=== PATIENT | female | born 1940 ===

== ENCOUNTER 2024-02-25 10:36 | Inpatient (IN) | payer MEDICARE, OTHER ==
[~2024-02-25 10:36] MED LIST: HYDROmorphone 0.5 MG/0.5 ML SYRINGE IVP PRN; MIDAZOLAM 2 MG/2 ML VIAL IV PRN
--- NOTE | 2024-02-25 11:13 | XR ---
EXAMINATION TYPE: XR KUB DATE OF EXAM: 02/25/2024 HISTORY: Pain Comparison: None.Single KUB is submitted for interpretation. Findings: Right renal calculi: Mid pole right renal calculus measures 1.4 cm with a lower pole calculus measuri ng approximately 1.1 cm. Right ureteral calculi: None Visualized. Left renal calculi: Staghorn calculus measures approximately 4.4 x 2.6 cm. Additional lower pole magdalena culus measures 1.2 cm with an additional 6 mm calculus. Left ureteral calculi: None Visualized. Pelvic calcifications: phleboliths noted to be in place. Bowel gas pattern is unremarkable. No free air. No mass effects. IMPRESSION: 1. As above
[2024-02-25] MEDS: LACTATED RINGERS 1,000 ML IV ONE ×2 (11:46→14:35)
[2024-02-25 11:47] LABS: Glucose,Whole Blood 88 mg/dL (70-110)
[2024-02-25] MEDS: ONDANSETRON 4 MG/2 ML VIAL IVP ONE ×2 (11:52→16:00)
[2024-02-25] MEDS: DEXAMETHASONE SOD PHOSPHATE 4 MG/ML 1 ML VIAL IVP ONE (11:52)
[2024-02-25] MEDS: GENTAMICIN 80 MG in SODIUM CHLORIDE 0.9% 100 ML IVPB PRN (12:55)
[2024-02-25] MEDS ORDERED: PHENYLEPHRINE-0.9% NACL SYG 1,000 MCG/10 ML SYRINGE ONE (13:02)
[2024-02-25] MEDS ORDERED: ROCURONIUM 10 MG/ML (5 ML VIAL) IV ONE (13:02)
[2024-02-25] MEDS ORDERED: PROPOFOL 10 MG/ML 20 ML VIAL IV ONE (13:02)
[2024-02-25] MEDS ORDERED: NEOSTIGMINE 1 MG/ML 10 ML VIAL ONE (13:02)
[2024-02-25] MEDS ORDERED: fentaNYL (PF) 50 MCG/ML 2 ML AMP ONE (13:02)
[2024-02-25] MEDS ORDERED: GLYCOPYRROLATE 0.2 MG/ML 2 ML VIAL ONE (13:02)
[2024-02-25] MEDS ORDERED: LIDOCAINE 1% INJ 10MG/ML (20 ML MDV) ONE (13:02)
[2024-02-25] MEDS: IOPAMIDOL-370 100ML BTL MISCELLANE ONE (13:43)
[2024-02-25] MEDS ORDERED: FLUTICASONE 50MCG/SPRAY NASAL 16GM NASAL PRN (14:54)
[2024-02-25] MEDS ORDERED: MAG HYDROX/AL HYDROX/SIMETH 30 ML CUP PO PRN (14:55)
[2024-02-25 14:56] LABS: Glucose,Whole Blood 104 mg/dL (70-110)
--- NOTE | 2024-02-25 15:00 | FL ---
EXAMINATION TYPE: FL Perc Nephrostomy New Access DATE OF EXAM: 02/25/2024 COMPARISON: NONE HISTORY: PERCUTANEOUS LEFT STAGHORN CALCULUS TECHNIQUE: Fluoroscopy. FINDINGS: LEFT SIDE PERC NEPHRO WITH DR. GRANT FL TIME 4.49 MINS DAP 30.881 IMPRESSION: As Above.
--- NOTE | 2024-02-25 15:06 | P.OP ---
Date of Procedure: 02/25/24 Preoperative Diagnosis: Staghorn calculus left, infected Postoperative Diagnosis: same Procedure(s) Performed: cystoscopy, placement of occluding balloon catheter left, percutaneous nephrostomy (dr higginbotham), percutaneous nephrostolithotomy with ultrasound and laser lithotripsy, placement of 10 J nephrostomy Anesthesia: AIDA Surgeon: Chandrakant Higginbotham Estimated Blood Loss (ml): 100 Pathology: other (stone) Condition: stable Disposition: PACU Indications for Procedure: patient is 84. She has a staghorn calculus in the left kidney that is infected. She comes for percutaneous nephrostolithotomy left Description of Procedure: patient brought to the operating suite. Given a successful general endotracheal anesthesia. Placed in a frog position with a sterile prep and drape. Cystoscopy a Foroblique lens and 21-[place]izen [place] sheath identifies chronic cystitis on the bladder. The left ureteral orifice is intubated and a 5-[place] occluding balloon catheters passed up to the proximal ureter. The balloon is insufflated. It is secured to a 16-[place]izen [place] Aldana The patient's placed in a prone position with care to airways and extremities. left Percutaneous nephrostomy access is performed by me and will be dictated separately.I then dilate the tract to 30-[place]izen [place] and through the established access in the upper pole of the left kidney. I introduced the nephrostomy sheath into the collecting system and with the rigid nephroscope I remove clot. The stone is seen. With ultrasound I slowly fracture and disintegrate the stone. It is very soft consistent with a struvite stone. After I removed the bulk of the stone I looked throughout the collecting system with the flexible nephroscope. There is one stone in the lower pole calyx that required laser lithotripsy with the 272 laser probe break it up into tiny fragments. I used the 0 tip stone basket to remove some other fragments. I looked down the proximal ureter and see no remaining stone fragments. An intraoperative nephrostogram is performed and there are no remaining fragments. There is a stone in the parenchyma in the left lower pole that I cannot access endoscopically and this is confirmed with the intraoperative nephrostogram.a 10 J nephrostomy is placed the patient is awakened and returned recovery in good condition. The patient tolerated the procedure well. Blood loss was approximately 100 mL.
--- NOTE | 2024-02-25 15:12 | P.PCN ---
Date of Procedure: 02/25/24 Preoperative Diagnosis: left staghorn calculus Postoperative Diagnosis: same Procedure(s) Performed: radiographic percutaneous access to the left upper pole calyx Anesthesia: AIDA Surgeon: Chandrakant Gaffney Disposition: PACU Indications for Procedure: the patient is 84. She has an infected Staghorn calculus on the left. She comes for percutaneous access prior to percutaneous nephrostolithotomy on the left side Description of Procedure: the patient has been previously anesthetized. She is in a prone position. The left flank is exposed. I injected air through the previously placed occluding balloon catheter in the left proximal ureter. The collecting system was identified. The large staghorn calculus is noted. A left upper pole calyx is dilated. I then make a small sergey in the incision over the left upper pole calyx. I passed the 21-gauge Chiba needle into the left upper pole calyx. Through the Chiba needle a cope-Mandrell wire, 3-Frenchis passed into the upper pole calyx and then into the renal pelvis. I then removed the Chiba needle and over the wires passed a dilating catheter, 6-Erit[place]. I then removed the cope wireand pass an 035 [place] straight wire into the proximal ureter. I then removed the dilating catheter and passed a 5-[place] Kumpe catheter over the wire. This allows me to eventually directed my wire down into the proximal ureter. Fortunately I'm able to pass a comfy catheter over the wire. I then remove the with 35 [place] wire pass a Super Stiff wire through the Kumpe catheter. I then over the Super Stiff wire pass a 810 exchange catheters in the left proximal ureter. The 8 is removed and a second safety wires passed down the left ureter. Over the working wires and passed the dilating balloon and the tract was dilated to 30-Erit[place]an. Over the dilating balloon a 30-Eritrean sheath was passed into the collecting system.
[2024-02-25] MEDS: Pre Op ABX Message 1 EACH MISC MISCELLANE ONE (15:59)
[2024-02-25] MEDS: DEXAMETHASONE SOD PHOSPHATE 4 MG/ML 1 ML VIAL IV ONE (15:59)
[2024-02-25] MEDS: LACTATED RINGERS 1,000 ML IV SCH (16:00)
[2024-02-25] MEDS: SODIUM CHLORIDE 0.45% 1,000 ML IV SCH (16:01)
[2024-02-25] MEDS: MORPHINE SULFATE 2 MG/ML SYRINGE IVP STA (16:01)
[2024-02-25] MEDS: GABAPENTIN 100 MG CAP PO SCH (17:31)
[2024-02-25] MEDS: carvediloL 12.5 MG TAB PO SCH (17:31)
[2024-02-25 17:38] LABS: Glucose,Whole Blood 123 mg/dL (70-110)
[2024-02-25] MEDS: FLUTICASONE 110 MCG INHALER INHALATION SCH (19:27)
[2024-02-25 20:28] LABS: Glucose,Whole Blood 128 mg/dL (70-110)
[2024-02-25] MEDS: MORPHINE SULFATE 4 MG/ML SYRINGE IVP PRN (20:52)
[2024-02-25] MEDS: metFORMIN 500 MG TAB PO SCH (21:04)
[2024-02-25] MEDS: AZELASTINE 137MCG/SPRAY NASAL SCH (21:10)
[2024-02-26] MEDS: ACETAMINOPHEN TAB 325 MG TAB PO PRN (02:00)
[2024-02-26 07:44] LABS: Glucose,Whole Blood 97 mg/dL (70-110)
[2024-02-26] MEDS: LEVOFLOXACIN 500 MG TAB PO SCH (08:51)
[2024-02-26] MEDS: DAPAGLIFLOZIN PROPANEDIOL 5 MG TABLET PO SCH (08:51)
[2024-02-26] MEDS: FENOFIBRATE 160 MG TAB PO SCH (08:51)
[2024-02-26 12:21] LABS: Glucose,Whole Blood 95 mg/dL (70-110)
[2024-02-26 16:58] LABS: Glucose,Whole Blood 83 mg/dL (70-110)
[2024-02-26 20:41] LABS: Glucose,Whole Blood 87 mg/dL (70-110)
[2024-02-27 07:12] LABS: Glucose,Whole Blood 109 mg/dL (70-110)
[2024-02-27 11:49] LABS: Glucose,Whole Blood 115 mg/dL (70-110)
[2024-02-27] MEDS: FLUCONAZOLE 150 MG TAB PO STA (14:06)
[2024-02-27 17:14] LABS: Glucose,Whole Blood 140 mg/dL (70-110)
[2024-02-27 19:58] LABS: Glucose,Whole Blood 129 mg/dL (70-110)
[2024-02-28 07:06] LABS: Glucose,Whole Blood 99 mg/dL (70-110)
[2024-02-28] MEDS: FLUCONAZOLE 150 MG TAB PO SCH (08:21)
--- NOTE | 2024-02-28 10:40 | P.PN ---
Subjective Progress Note Date: 02/26/24 The patient is 24 hours status post left percutaneous nephrostolithotomy for an infected stone. As expected she had some fever last night despite culture specific antibiotics. She is feeling well. Her urine is clearing nicely. Objective - Vital Signs Vital signs: Vital Signs Temp 99.4 F 02/28/24 07:08 Pulse 98 02/28/24 07:08 Resp 17 02/28/24 07:08 BP 109/68 02/28/24 07:08 Pulse Ox 94 L 02/28/24 08:01 FiO2 Intake & Output 02/27/24 02/28/24 02/28/24 18:59 06:59 18:59 Intake Total 900 590 Output Total 875 1640 Balance 25 -1050 Intake: Intake, IV Titration 900 Amount Sodium Chloride 0.45% 1, 900 000 ml @ 75 mls/hr IV . [id number] [facility] Rx#:[id number] Oral 590 Output: Drainage 325 340 Left Back 325 340 Urine 550 1300 Other: Voiding Method Indwelling Catheter Indwelling Catheter # Bowel Movements 1 - Genitourinary Genitourinary Comment(s): Left nephrostomy tube with clearing urine - Labs Labs: Abnormal Lab Results - Last 24 Hours (Table) 02/27/24 02/27/24 02/27/24 Range/Units 11:48 17:13 19:56 POC Glucose (mg/dL) 115 H 140 H 129 H (70-110) mg/dL Assessment and Plan Assessment: Impression: Status post percutaneous nephrostolithotomy 2 large infected stone. Postoperative fever as expected secondary to fracturing of the stone. Recommendations: I will keep her in the hospital at least 4 another 24 hours for antibiotics and IV fluids. I will leave the Aldana in for now.
--- NOTE | 2024-02-28 10:42 | P.PN ---
Subjective Progress Note Date: 02/27/24 The patient underwent percutaneous nephrostolithotomy on 02/26/24 for an infected left staghorn calculus. She is recuperating nicely. Again as expected she had fever yesterday less than on 02/25. She is eating. Her urine is clearing. Objective - Vital Signs Vital signs: Vital Signs Temp 99.4 F 02/28/24 07:08 Pulse 98 02/28/24 07:08 Resp 17 02/28/24 07:08 BP 109/68 02/28/24 07:08 Pulse Ox 94 L 02/28/24 08:01 FiO2 Intake & Output 02/27/24 02/28/24 02/28/24 18:59 06:59 18:59 Intake Total 900 590 Output Total 875 1640 Balance 25 -1050 Intake: Intake, IV Titration 900 Amount Sodium Chloride 0.45% 1, 900 000 ml @ 75 mls/hr IV . [id number] [facility] Rx#:[id number] Oral 590 Output: Drainage 325 340 Left Back 325 340 Urine 550 1300 Other: Voiding Method Indwelling Catheter Indwelling Catheter # Bowel Movements 1 - Labs Labs: Abnormal Lab Results - Last 24 Hours (Table) 02/27/24 02/27/24 02/27/24 Range/Units 11:48 17:13 19:56 POC Glucose (mg/dL) 115 H 140 H 129 H (70-110) mg/dL Assessment and Plan Assessment: Impression: Status post percutaneous nephrostolithotomy left to infected Staghorn calculus. Postoperative fever as expected due to infected stone despite culture specific antibiotics Recommendations: Due to her age and health we'll observe her another 24 hours
[2024-02-28 12:00] LABS: Glucose,Whole Blood 111 mg/dL (70-110)
--- NOTE | 2024-02-28 13:15 | P.DS ---
Providers Date of admission: 02/28/24 10:03 Attending physician: Chandrakant Gaffney Primary care physician: Stated None Hospital Course: This is an 84-year-old female with history of left-sided staghorn calculi. Underwent a percutaneous nephrolithotomy on February 24. Please see op note dated February 24 for surgery details. Patient was admitted to the hospital postoperatively. She did have postoperative fever requiring IV antibiotics. Aldana catheter was removed on postop day #3. She was discharged home on postop day #3, at time of discharge she was tolerating a diet, ambulating, and pain was controlled Plan - Discharge Summary Discharge Rx Participant: Yes New Discharge Prescriptions: No Action carvediloL 12.5 mg PO BID Simvastatin 40 mg PO HS Gabapentin [Neurontin] 100 mg PO TID Fenofibrate Nanocrystallized [Fenofibrate] 145 mg PO QAM Azelastine HCl [Astepro] 1 spray NASAL BID Fluticasone Nasal [place] [Flonase Nasal [place]] 1 spray NASAL DAILY PRN PRN Reason: coughing levoFLOXacin 500 mg PO DAILY Fluticasone Propionate [Flovent Diskus] 1 inh INHALATION BID metFORMIN HCL 1,000 mg PO BID Valsartan 160 mg PO QAM Empagliflozin [Jardiance] 10 mg PO QAM Acetaminophen [Tylenol Arthritis] 2 tab PO BID Aspirin 81 mg PO DAILY Unk Multi Vitamin 1 tab PO DAILY Discharge Medication List Acetaminophen [Tylenol Arthritis] 2 tab PO BID 02/11/24 [History] Aspirin 81 mg PO DAILY 02/11/24 [History] Azelastine HCl [Astepro] 1 spray NASAL BID 02/11/24 [History] Empagliflozin [Jardiance] 10 mg PO QAM 02/11/24 [History] Fenofibrate Nanocrystallized [Fenofibrate] 145 mg PO QAM 02/11/24 [History] Fluticasone Nasal [place] [Flonase Nasal [place]] 1 spray NASAL DAILY PRN 02/11/24 [History] Fluticasone Propionate [Flovent Diskus] 1 inh INHALATION BID 02/11/24 [History] Gabapentin [Neurontin] 100 mg PO TID 02/11/24 [History] Simvastatin 40 mg PO HS 02/11/24 [History] Valsartan 160 mg PO QAM 02/11/24 [History] carvediloL 12.5 mg PO BID 02/11/24 [History] metFORMIN HCL 1,000 mg PO BID 02/11/24 [History] Unk Multi Vitamin 1 tab PO DAILY 02/24/24 [History] levoFLOXacin 500 mg PO DAILY 02/24/24 [History] Follow up Appointment(s)/Referral(s): Residential Home,Health [NON-STAFF] - 1 Week Activity/Diet/Wound Care/Special Instructions: Per Dr. Bartholomew, Nephrostomy tube will not require flushing.
[2024-02-28 17:23] LABS: Glucose,Whole Blood 105 mg/dL (70-110)
[2024-02-28 19:56] LABS: Glucose,Whole Blood 103 mg/dL (70-110)
[2024-02-29 07:01] LABS: Glucose,Whole Blood 97 mg/dL (70-110)
--- NOTE | 2024-02-29 09:18 | P.PN ---
Subjective Progress Note Date: 02/29/24 No acute overnight event, she is afebrile this morning. Awaiting placement into subacute rehab tentatively plan to discharge on March 02 Objective - Vital Signs Vital signs: Vital Signs Temp 98.4 F 02/29/24 07:01 Pulse 88 02/29/24 07:01 Resp 16 02/29/24 07:01 BP 115/71 02/29/24 07:01 Pulse Ox 95 02/29/24 07:01 FiO2 Intake & Output 02/28/24 02/29/24 02/29/24 18:59 06:59 18:59 Intake Total 1080 1260 Output Total 1000 200 Balance 80 1060 Intake: Intake, IV Titration 900 Amount Sodium Chloride 0.45% 1, 900 000 ml @ 75 mls/hr IV . [id number] [facility] Rx#:[id number] Oral 1080 360 Output: Drainage 300 200 Left Back 300 200 Urine 700 Other: Voiding Method Indwelling Catheter Indwelling Catheter # Voids 1 1 # Bowel Movements 1 1 - Constitutional General appearance: Present: no acute distress - Gastrointestinal General gastrointestinal: Present: soft. Absent: distended, tenderness - Psychiatric Psychiatric: Present: A&O x's 3 - Labs Labs: Abnormal Lab Results - Last 24 Hours (Table) 02/28/24 Range/Units 11:59 POC Glucose (mg/dL) 111 H (70-110) mg/dL Assessment and Plan Assessment: Status post left PCNL for staghorn calculi postoperative course complicated by fever. Plan for patient to be discharged to subacute rehab tentatively she is scheduled for to be discharged on March 02 -Tentatively plan for discharge on March 02 to [facility]
[2024-02-29 12:21] LABS: Glucose,Whole Blood 107 mg/dL (70-110)
[2024-02-29] MEDS: ONDANSETRON 4 MG/2 ML VIAL IVP PRN (12:48)
[2024-02-29 17:23] LABS: Glucose,Whole Blood 125 mg/dL (70-110)
[2024-02-29 18:04] LABS: Glucose,Whole Blood 123 mg/dL (70-110)
[2024-02-29 20:17] LABS: Glucose,Whole Blood 123 mg/dL (70-110)
[2024-03-01 06:42] LABS: Glucose,Whole Blood 93 mg/dL (70-110)
--- NOTE | 2024-03-01 10:39 | P.PN ---
Subjective No acute overnight event, having diarrhea this morning, of note patient has history of chronic diarrhea. awaiting placement into subacute rehab tentatively plan to discharge on March 02 Objective - Vital Signs Vital signs: Vital Signs Temp 98.7 F 03/01/24 06:41 Pulse 88 03/01/24 06:41 Resp 17 03/01/24 06:41 BP 114/67 03/01/24 06:41 Pulse Ox 94 L 03/01/24 06:41 FiO2 Intake & Output 02/29/24 03/01/24 03/01/24 18:59 06:59 18:59 Intake Total 830 Output Total 275 175 Balance -275 655 Intake: Oral 830 Output: Drainage 275 175 Left Back 275 175 Other: Voiding Method Bedside Commode # Voids 1 1 # Bowel Movements 1 1 - Labs Labs: Abnormal Lab Results - Last 24 Hours (Table) 02/29/24 02/29/24 02/29/24 Range/Units 17:22 18:02 20:16 POC Glucose (mg/dL) 125 H 123 H 123 H (70-110) mg/dL Assessment and Plan Assessment: Status post left PCNL for staghorn calculi postoperative course complicated by fever. Plan for patient to be discharged to subacute rehab tentatively she is scheduled for to be discharged on March 02 -Tentatively plan for discharge on March 02 to [facility]
[2024-03-01 12:29] LABS: Glucose,Whole Blood 93 mg/dL (70-110)
[2024-03-01] MEDS: DIPHENOX-ATROP 2.5-0.025 MG 1 EACH TAB PO PRN (15:41)
[2024-03-01 17:09] LABS: Glucose,Whole Blood 107 mg/dL (70-110)
[2024-03-01 20:43] LABS: Glucose,Whole Blood 162 mg/dL (70-110)
[2024-03-01 22:32] VITALS: RESP 16
[2024-03-02 07:11] LABS: Glucose,Whole Blood 100 mg/dL (70-110)
[2024-03-02 12:28] LABS: Glucose,Whole Blood 80 mg/dL (70-110)
--- NOTE | 2024-03-02 13:27 | P.DS ---
Providers Date of admission: 02/28/24 10:03 Expected date of discharge: 03/02/24 Attending physician: Chandrakant Gaffney Primary care physician: Stated None Hospital Course: This is an 84-year-old female with history of left-sided staghorn calculi. Underwent a percutaneous nephrolithotomy on February 24. Please see op note dated February 24 for surgery details. Patient was admitted to the hospital postoperatively. She did have postoperative fever requiring IV antibiotics. Aldana catheter was removed on postop day #3. She was discharged to a rehab facility. At time of discharge she was tolerating diet, ambulating with a walker, and pain was controlled Procedures: Left percutaneous nephrolithotomy on February 25, 2024. Patient Condition at Discharge: Fair Plan - Discharge Summary Discharge Rx Participant: Yes New Discharge Prescriptions: New Fluconazole [Diflucan] 100 mg PO DAILY #5 tab Ciprofloxacin HCl [Cipro] 250 mg PO Q12HR #10 tablet Ketorolac [Toradol] 10 mg PO Q6HR PRN #15 tab PRN Reason: Pain No Action carvediloL 12.5 mg PO BID Simvastatin 40 mg PO HS Gabapentin [Neurontin] 100 mg PO TID Fenofibrate Nanocrystallized [Fenofibrate] 145 mg PO QAM Azelastine HCl [Astepro] 1 spray NASAL BID Fluticasone Nasal [place] [Flonase Nasal [place]] 1 spray NASAL DAILY PRN PRN Reason: coughing levoFLOXacin 500 mg PO DAILY Fluticasone Propionate [Flovent Diskus] 1 inh INHALATION BID metFORMIN HCL 1,000 mg PO BID Valsartan 160 mg PO QAM Empagliflozin [Jardiance] 10 mg PO QAM Acetaminophen [Tylenol Arthritis] 2 tab PO BID Aspirin 81 mg PO DAILY Unk Multi Vitamin 1 tab PO DAILY Discharge Medication List Acetaminophen [Tylenol Arthritis] 2 tab PO BID 02/11/24 [History] Aspirin 81 mg PO DAILY 02/11/24 [History] Azelastine HCl [Astepro] 1 spray NASAL BID 02/11/24 [History] Empagliflozin [Jardiance] 10 mg PO QAM 02/11/24 [History] Fenofibrate Nanocrystallized [Fenofibrate] 145 mg PO QAM 02/11/24 [History] Fluticasone Nasal [place] [Flonase Nasal [place]] 1 spray NASAL DAILY PRN 02/11/24 [History] Fluticasone Propionate [Flovent Diskus] 1 inh INHALATION BID 02/11/24 [History] Gabapentin [Neurontin] 100 mg PO TID 02/11/24 [History] Simvastatin 40 mg PO HS 02/11/24 [History] Valsartan 160 mg PO QAM 02/11/24 [History] carvediloL 12.5 mg PO BID 02/11/24 [History] metFORMIN HCL 1,000 mg PO BID 02/11/24 [History] Unk Multi Vitamin 1 tab PO DAILY 02/24/24 [History] levoFLOXacin 500 mg PO DAILY 02/24/24 [History] Ciprofloxacin HCl [Cipro] 250 mg PO Q12HR #10 tablet 02/28/24 [Rx] Fluconazole [Diflucan] 100 mg PO DAILY #5 tab 02/28/24 [Rx] Ketorolac [Toradol] 10 mg PO Q6HR PRN #15 tab 02/28/24 [Rx] Follow up Appointment(s)/Referral(s): Residential Home,Health [NON-STAFF] - 1 Week Chandrakant Gaffney MD [STAFF PHYSICIAN] - 3 Days Activity/Diet/Wound Care/Special Instructions: IA home with nephrostomy tube. Nephrostomy tube will not require flushing. Discharge Disposition: TRANSFER TO SNF/ECF
[2024-03-02 14:27] VITALS: BP 91/57; PULSE 88; TEMP 98.1
== END 2024-03-02 14:55 | DRG 661 ==
LOC: OR 10:36 → 5NMEDONC 14:50 → OR 02-28 10:03 → 5NMEDONC 02-28 10:03
PROVIDERS: ADMIT Urology; ATTEND Urology
PROC: BT121ZZ Fluoroscopy of Left Kidney using Low Osmolar Contrast (ICD-10-PCS; 2024-02-25)
PROC: 0TC13ZZ Extirpation of Matter from Left Kidney, Percutaneous Approach (ICD-10-PCS; principal; 2024-02-25 12:30)
PROC: 0T9130Z Drainage of Left Kidney with Drainage Device, Percutaneous Approach (ICD-10-PCS; 2024-02-25 12:30)
DX: N13.2 Hydronephrosis with renal and ureteral calculous obstruction (principal); K52.9 Noninfective gastroenteritis and colitis, unspecified; N30.20 Other chronic cystitis without hematuria; R50.82 Postprocedural fever; Z88.0 Allergy status to penicillin; Z75.1 Person awaiting admission to adequate facility elsewhere
CPT/HCPCS: 50432; 74018; 82365; 86850; 86900; 86901; 94640; 94760